=== PATIENT | male | born 1955 | race African-American/Black ===

== ENCOUNTER 2018-06-21 16:11 | Inpatient (IN) | payer MEDICAID ==
[~2018-06-21] VITALS: Ht 172.7 cm; Wt 106.7 kg
[2018-06-21 16:35] VITALS: Ht 172.7 cm; Wt 106.7 kg
--- NOTE | 2018-06-21 16:37 | NUR ---
PT BIB [facility] WITH C/O ALOC. PT WAS FOUND BY ROOMMATE IN SUPINE POSITION. PT RECALLS GOING TO [place] TO MAKE SOMETHING TO EAT, BUT NOTHING ELSE. BLOOD SUGAR WHEN MEDICS ARRIVED WAS 36. THEY ADMINISTERED D10 25G X2 AND BS WENT UP TO 56 AND PT BECAME AAOX4, WITH GCS OF 15. AT BEDSIDE PT IS AAOX4, RESPS E/U, SKIN IS PINK, WARM AND DRY. BILATERAL LOWER LEG EDEMA NOTED WITH SKIN TEAR TO R LOWER LEG. (NOT ACTIVE BLEED). PT PLACED ON FULL CM, BED IN LOWEST POSITION. CALL LIGHT WITHIN REACH.
--- NOTE | 2018-06-21 16:43 | NUR ---
ED PHYSICIAN AT BEDSIDE FOR PATIENT EVALUATION. MEDICAL SCREENING EXAMINATION COMPLETED BY ED PHYSICIAN DR. PEREZ
--- NOTE | 2018-06-21 17:29 | NUR ---
ROOMMATE AT BEDSIDE FRANCO AT BEDS SIDE. PT RESTING IN POSITION OF COMFORT. PT ON MOBILE PHONE TALKING TO SISTER. PT CALM AND COOPERATIVE. NO ACUTE DISTRESS NOTED AT THIS MOMENT.
--- NOTE | 2018-06-21 17:50 | NUR ---
PT GIVEN A TUNA SANDWHICH. PT ATE 100% AND STS "THAT WAS GOOD". PT CALM AND COOPERATIVE, RESPS E/U, AND DOESNT COMPLAIN OF PAIN.
--- NOTE | 2018-06-21 17:52 | NUR ---
PT REPORTS THAT HE HAS NOT BEEN ABLE TO TAKE ALL HIS MEDICAITON FOR ABOUT A MONTH; HOWEVER, HE DID TAKE GLIZIDE, ATORVASTATIN AND JANUVIA THE PAST 3 DAYS.
[2018-06-21 17:57] LABS: AMPHETAMINE QUAL UR NONE DETECTED (See below)
[2018-06-21 17:59] LABS: BILIRUBIN TOTAL 0.21 mg/dL (0.20-1.00); CALCIUM 7.7 mg/dL (8.5-10.1); CARBON DIOXIDE 22.2 mmol/L (21-32); POTASSIUM SERUM 3.8 mmol/L (3.5-5.1); TOTAL PROTEIN, SERUM 7.1 g/dL (6.4-8.2)
[2018-06-21 18:07] LABS: ALBUMIN 3.1 g/dL (3.4-5.0); CREATININE SERUM 6.8 mg/dL (0.7-1.3)
--- NOTE | 2018-06-21 18:17 | NUR ---
PT MEDICATED PER MD ORDERS. SEE EMAR FOR DETAILS.
[2018-06-21 18:23] LABS: PLATELET COUNT 294 x10^3mcL (130-400)
[2018-06-21 18:29] LABS: RED CELL DISTRIBUTION WIDTH 14.8 % (11.5-14.5)
[2018-06-21 18:31] LABS: MONOCYTE 2 % (0-7); SEGMENTED NEUTROPHILS 91 % (37-75); acanthocyte (spur cell) 1+; burr cell (echinocyte) 2+; rbc morphology (normal/abnorm) ABNORMAL (NORMAL)
[2018-06-21 18:32] LABS: PLATELET MORPHOLOGY PLATELETS NORMAL
--- NOTE | 2018-06-21 18:43 | NUR ---
PT C/O OF BEING COLD. PT GIVEN A BLANKET. PT FEELS BETTER.
--- NOTE | 2018-06-21 19:30 | NUR ---
RECEIVED REPORT FROM SOFI OVIEDO FOR CONTINUITY OF CARE, PATIENT SITTING UP IN BED, NO S/S OF ACUTE DISTRESS, HANDS ARE SHAKY D/T LOW BLOOD SUGAR
[2018-06-21 19:48] LABS: UA SPECIFIC GRAVITY 1.025 (1.005-1.035); microscopic required? YES; urine erythrocyte 2+ (NEGATIVE)
[2018-06-21 20:04] LABS: CHOLESTEROL/HDL RATIO 3.3; MAGNESIUM 2.2 mg/dL (1.8-2.4); PHOSPHOROUS 4.5 mg/dL (2.5-4.9)
[2018-06-21 20:15] LABS: T3 TOTAL 0.73 ng/mL
[2018-06-21 20:20] LABS: FREE T4 0.94 ng/dL (0.76-1.46); FREE THYROXINE INDEX 2.5 ug/dL (1.4-4.5); T4(THYROXINE) 7.3 ug/dL (4.7-13.3)
--- NOTE | 2018-06-21 21:03 | NUR ---
BS AT 48. MD PAGED. PATIENT ALERT AND ORIENTED X 4, NO S/S OF ACUTE DISTRESS NOTED
--- NOTE | 2018-06-21 21:22 | NUR ---
SPOKE WITH DR. ANDRADE, PER KEEP EVERYTHING THE SAME AND RECHECK BS AT 2130.
[2018-06-21] MEDS ORDERED: LIPITOR80 MG PO (21:54)
[2018-06-21] MEDS ORDERED: CARVEDILOL6.25 M1 PO (21:54)
[2018-06-21] MEDS ORDERED: JANUVIA100 M1 PO (21:55)
[2018-06-21] MEDS ORDERED: VISION VITAMIN1 EACH PO (21:55)
[2018-06-21] MEDS ORDERED: NIFEDIPINE60 MG PO (21:56)
[2018-06-21] MEDS ORDERED: GLUCOTROL10 MG PO (21:56)
[2018-06-21] MEDS ORDERED: HYDROCHLOROTHIA25 MG PO (21:57)
[2018-06-21] MEDS ORDERED: NOR10 PO (21:57)
[2018-06-21] MEDS ORDERED: LISINOPRIL10 MG PO (21:57)
--- NOTE | 2018-06-21 22:40 | NUR ---
BS 49. REPEATED BS 52. D50 GIVEN[address] DR HERNANDEZ NOTIFIED.WILL CONTINUE TO MONITOR.PT AAOX4
--- NOTE | 2018-06-21 22:42 | NUR ---
REPORT GIVEN TO SOFI VALERA FOR CONTINUITY OF CARE
--- NOTE | 2018-06-21 22:54 | NUR ---
RECEIVED PT FROM ED VIA FORREST ACCOMPANIED BY THE NURSE. LUNG SOUND CTA. NO ACUTE DISTRESS NOTED.C/O LIGHT MALLORY.IV SITE TO RAC PATENT AND INTACT. EDEMA +2 TO BLE. SKIN LESIONS TO BLE,PHOTO TAKEN.AAOX4.AMBULATORY.TELE#8 NSR. BED IN LOWEST POSITION,CALL LIGHT WITHIN REACH. WILL CONTINUE TO MONITOR.
--- NOTE | 2018-06-21 23:43 | NUR ---
BS 49. REPEAT BS 52. D50 GIVEN[address] DR HERNANDEZ NOTIFIED.WILL CONTINUE TO MONITOR.
--- NOTE | 2018-06-22 00:15 | NUR ---
BS 71. GIVEN SANDWICH AND APPLE JUICE. WILL CONTINUE TO MONITOR.
[2018-06-22 00:16] VITALS: BP 170/75
--- NOTE | 2018-06-22 02:00 | NUR ---
BS 47.REPEAT BS 44.GIVEN GLUCAGON IVP. WILL CONTINUE TO MONITOR.
--- NOTE | 2018-06-22 02:43 | NUR ---
RECHECKED BS 88. GIVEN JUICE AND CRACKERS.WILL CONTINUE TO MONITOR.
--- NOTE | 2018-06-22 05:27 | NUR ---
PT AAOX4. NO SOB NOTED. NO C/O PAIN. IVF INFUSING WELL. BS 79.BED IN LOWEST POSITION,CALL LIGHT MERRICK GRAHAM. WILL CONTINUE TO MONITOR.
--- NOTE | 2018-06-22 06:00 | NUR ---
PT MOVED TO RM 246 CLOSER TO NURSE STATION. INSTRUCTED PT TO CALL FOR HELP IF NEED OF GETTING OUT BED. BED IN LOWEST POSITION,SIDERAILS UP.BED ALARM ON. CALL LIGHT WITHIN REACH. WILL CONTINUE TO MONITOR.
[2018-06-22 06:08] VITALS: BP 149/79
[2018-06-22 07:13] LABS: CALCIUM 7.3 mg/dL (8.5-10.1); CARBON DIOXIDE 24.1 mmol/L (21-32)
--- NOTE | 2018-06-22 07:25 | NUR ---
RECEIVED REPORT FROM LEATHER WORKER NURSE AT THIS TIME. PATIENT RESTING COMFORTABLY IN BED. NO DISTRESS OR DISCOMFORT NOTED. BREATHING EVEN AND UNLABORED. NO RESPIRATORY DISTRESS NOTED. PATIENT DENIES CHEST PAIN AT THIS TIME. IV PATENT AND INTACT. ALL QUESTIONS AND CONCERNS ADDRESSED. ALL NEEDS ATTENDED TO. WILL CONTINUE TO MONITOR
--- NOTE | 2018-06-22 07:46 | NUR ---
DR RUSHING NOTIFIED OF PATIENTS CRITICAL LAB VALUES GLUCOSE 54 AND CHEMISTRY RESEARCH ASSISTANT 7.0. PATIENT IS EATING BREAKFAST AT THIS TIME. WILL RECHECK BLOOD SUGAR. ALL NEEDS ATTENDED TO. WILL CONTINUE TO MONITOR
--- NOTE | 2018-06-22 07:50 | NUR ---
CARE ENDORSED TO DAY NURSE SARA. ALL QUESTION AND CONCERN WERE ADDRESSED.
--- NOTE | 2018-06-22 08:06 | NUR ---
RECHECKED PATIENT BLOOD SUGAR AT THIS TIME. BLOOD SUGAR 95. DR RUSHING AT BEDSIDE. REVIEWING POC WITH PATIENT. ALL QUESTIONS AND CONCERNS ADDRESSED. ALL NEEDS ATTENDED TO. WILL CONTINUE TO MONITOR
[2018-06-22 08:47] LABS: BASOPHIL % 0.4 % (0-2); PLATELET COUNT 260 x10^3mcL (130-400)
[2018-06-22 08:54] VITALS: BP 139/73
[2018-06-22 09:17] LABS: RED CELL DISTRIBUTION WIDTH 14.9 % (11.5-14.5)
--- NOTE | 2018-06-22 09:39 | NUR ---
DR RUSHING NOTIFIED OF PATIENTS TROPONIN OF 0.139. PATIENT DENYING CHEST PAIN AT THIS TIME. ALL NEEDS ATTENDED TO.
--- NOTE | 2018-06-22 09:59 | NUR ---
ALL MEDICATIONS ADMINISTERED. PATIENT TOLERATED MEDICATIONS WELL. NO ADVERSE EFFECTS NOTED. ALL NEEDS ATTENDED TO. WILL CONTINUE TO MONITOR
--- NOTE | 2018-06-22 11:15 | NUR ---
PATIENTS BLOOD SUGAR 111. NO INSULIN COVERAGE NEEDED. WILL CONTINUE TO MONITOR
--- NOTE | 2018-06-22 12:26 | NUR ---
PATIENT SITTING UP IN BED EATING LUNCH AT THIS TIME. PATIENT TOLERATING DIET FAIRLY. NO APPARENT DISTRESS NOTED. ALL NEEDS ATTENDED TO. WILL CONTINUE TO MONITOR
[2018-06-22 13:13] VITALS: BP 150/80
--- NOTE | 2018-06-22 14:04 | NUR ---
DR RUSHING AWARE OF PATIENTS BLOOD PRESSURE OF 150/80. DR RUSHING TO ORDER PRN BLOOD PRESSURE MEDICATION. AWAITING ORDERS AT THIS TIME. ALL NEEDS ATTENDED TO. WILL CONTINUE TO MONITOR
--- NOTE | 2018-06-22 15:20 | NUR ---
DR RUSHING AWARE OF TROPONIN OF 0.130 AT THIS TIME. ALL NEEDS ATTENDED TO. WILL PROCEED ORDERED
--- NOTE | 2018-06-22 18:42 | NUR ---
PATIENT RESTING COMFORTABLY IN BED AT THIS TIME. NO APPARENT DISTRESS OR DISCOMFORT NOTED. IV PATENT AND INTACT. ALL QUESTIONS AND CONCERNS ADDRESSED. SAFETY PRECAUTIONS MAINTAINED. ALL NEEDS ATTENDED TO. WILL ENDORSE ALL CARE TO SPEECH PROFESSOR NURSE
--- NOTE | 2018-06-22 19:37 | NUR ---
PT. AWAKE, SITTING UP IN BED. ORIENTED X4. DENIES HEADACHE OR DIZZINESS. SPEECH CLEAR. ABLE TO FOLLOW COMMANDS. BREATH SOUNDS CLEAR THROUGHOUT LUNG CHOWDARY, RESP. EVEN, UNLABORED. NO SOB. PT. ON RA. ABD. SOFT AND ROUND, OBESE. BOWEL SOUNDS ACTIVE. DENIES ABD. PAIN, DENIES NAUSEA. PEDAL PULSES MODERATE BLE. +1-2. ABRASIVE WOUND, SLIGHTLY OOZING TO RLE, COVERED. DRIANAGE MINIMAL. PT. DENIES ANY PAIN OR DISCOMFORT. IV HEPLOCKED. FLUSHING WELL. BED LOW LAYING WITH ALARM ON. PT. INSTRUCTED TO CALL FOR HELP BEFORE GETTING OOB. CALL LIGHT WITHIN REACH.
--- NOTE | 2018-06-22 20:15 | NUR ---
DR. ARAUZ MADE ROUNDS, MADE ASSESSMENT AND SPOKE WITH PATIENT. MADE SUGGESTION FOR WOUND CARE, WOUND CARE IS ALREADY ORDERED SINCE ADMISSION. DR. PAYNE MADE AWARE OF CAKE WRINGER MAKING ROUNDS.
[2018-06-22 20:52] VITALS: BP 161/81
--- NOTE | 2018-06-22 21:40 | NUR ---
DR. ABDULLAHI, BEVERAGE INSPECTION MACHINE TENDER, MADE ROUNDS, SPOKE WITH PATIENT. PT. VERBALIZED UNDERSTANDING. NO NEW ORDERS OBTAINED AT THIS TIME.
--- NOTE | 2018-06-22 22:15 | NUR ---
DR. LAO MADE ROUNDS AND SPOKE WITH PATIENT. INFORM PATIENT OF POSSIBILITY OF NEEDING DIALYSIS BEFORE DISCHARGE BASED ON HIS LABS AND HTN. RECEIVED NEW ORDERS FOR NORVASC, LASIX CHANGED TO BID. LABS ALSO ORDERED FOR AM. WILL CONTINUE TO MONITOR.
--- NOTE | 2018-06-23 02:13 | NUR ---
PT. SLEEPING, EYES CLOSED. CALL LIGHT REMAINS WITHIN REACH. WILL CONTINUE TO MONITOR.
--- NOTE | 2018-06-23 05:57 | NUR ---
PT. AWAKE, UPSET ABOUT BLOOD BEING DRAWN TOO MUCH. PT. MADE AWARE OF REASONS FOR MORNING BLOOD DRAW. VERBALIZED UNDERSTANDING. PT.VERBALIZING SINCE LAST NIGHT HIS OBJECTION FOR DIALYSIS IF HE HAS TO DO SO. STATED THAT HE DOES NOT WANT ANY DIALYSIS. PT. MADE AWARE OF PROS OF DIALYSIS FOR HIS SITUATION. PT. SAID THAT HE WOULD CONSIDER IF HE NEEDS DIALYSIS.
[2018-06-23 06:41] VITALS: BP 187/95
--- NOTE | 2018-06-23 06:48 | NUR ---
PT.'S BP 187/95. THIS IS SECOND REPEATED BLOOD PRESSURE, INITIAL SBP 186. PRN HYDROCHLOROTHIAZIDE 10MG IVP GIEN ORDERED. WILL RECHECK BP.
--- NOTE | 2018-06-23 07:15 | NUR ---
BP CHECKED AFTER HCTZ IVP MEDICATION. BP DOWN TO 168/93, MAP 118. DR. MENDEZ, ASSEMBLER MOLDED FRAMES AT BEDSIDE, AWARE. DR. SPOKE TO PATIENT ABOUT NEEDING HEMODIALYSIS. PER DR. MENDEZ, PT. STATED THAT HE WILL NOT DO ANY HD TODAY. PT. CARE ENDORSED OVER TO INCOMING NURSE.
--- NOTE | 2018-06-23 07:20 | NUR ---
RECEIVED PT FROM GRANT RN. PT AA/OX4. NO S/S OF ACUTE DISTRESS. DENIES PAIN. REPORTS INTERMITTENT SOB, DENIES AT THIS TIME. O2 SAT 95% ON ROOM AIR. RR EVEN/SHALLOW/UNLABORED. CHEST EXPANSION SYMMETRICAL. NO MALLORY. NO DIZZINESS. NO N/V. NO ABD. PAIN. BLE ELEVATED WITH PILLOW. IV WNL, SALINE LOCKED. FLUID RESTRICTIONS IN PLACE. BED IN LOW POSITION. CALL LIGHT WITHIN REACH. WILL CONT. TO MONITOR.
[2018-06-23 07:28] LABS: BASOPHIL % 0.5 % (0-2); PLATELET COUNT 265 x10^3mcL (130-400)
[2018-06-23 07:33] LABS: RED CELL DISTRIBUTION WIDTH 14.6 % (11.5-14.5)
[2018-06-23 07:35] LABS: CALCIUM 7.3 mg/dL (8.5-10.1); CARBON DIOXIDE 21.9 mmol/L (21-32); PHOSPHOROUS 4.4 mg/dL (2.5-4.9); POTASSIUM SERUM 4.2 mmol/L (3.5-5.1)
[2018-06-23 07:40] LABS: CREATININE SERUM 7.1 mg/dL (0.7-1.3)
[2018-06-23 09:11] VITALS: BP 143/67
--- NOTE | 2018-06-23 11:45 | NUR ---
PT LAYING IN BED RESTING, EASILY AROUABLE TO VERBAL STIMULI. NO S/S OF ACUTE DISTRESS. BP 126/73, NO COMPLAINT OF PAIN. NO SOB ON ROOM AIR. NO CHEST PAIN. IV WNL, SALINE LOCKED. BED IN LOW POSITION. BLE ELEVATED WITH PILLOW. WILL CONT. TO MONITOR.
--- NOTE | 2018-06-23 15:06 | NUR ---
Initial Nutrition Assessment Dx: Hypoglycemia, Accelerated HTN, PMHx: HTN, DM Type II, Hypercholesterolemia PSHx: None Labs: (06/23) Na 138, K 4.2, BG 99, BUN 45H, Cr 7.1H, Trop + x 3, CK 2709H, WBC 7.9, H/H 7.6L/22L BG accuchecks 06/22-06/23: 79-145 mg/dL, with all readings <180 mg/dL indicating adequate glycemic control. Meds: Colace, Coreg, D50%, Humulin, Hydralazine, Lasix, Lipitor, Norvasc, MVI, Zofran Diet: CCHO PO Intake: (06/23) B: 100% (06/22) L/D: 100% Ht: 68" (173 cm) Wt: 271# (123.4 kg) BMI: 41.3 (Morbidly obese) IBW: 154# %IBW: 176% AJBW: 183# (83.1 kg) UBW: 260# Age: 62 y/o male Food Allergies: NKFA Skin: Abrasion/redness to BLE Alfa: 19 Edema: +1 to +2 non-pitting edema to BLE GI: Last BM x 1 (06/21) Per H&P, pt. admitted with LOC x 1 episode associated with SOB x 3 weeks, dizziness, fatigue, and x 1 episode of passing out at home. Pt. ran out of BP medications, but did not receive them in the mail as ordered. On multiple HTN medications for management. Pt. admits to not measuring BP regularly at home. Per bed huddle, pt. is requiring HD based on renal function labs, but has been refusing, despite discussions of the benefits of HD for his current condition. Pt. seen laying in bed during visit. Endorses excellent appetite without GI distress associated with diet order. Observed wound pictures in chart, no pressure injuries noted. WC: Oozing RLE wound s/p fall Problem with: No c/o N/V/D/C Problems with: Chewing: N Swallowing: N Current appetite: Excallent Recent wt change: None %wt change: N/A Vitamin/Supplement use: MVI QD Special diet at home: Regular Physical activity: None Education: Notified pt. of CCHO diet and associated restrictions; provided education on CCHO counting for optimal BG management. Offered pt. reduced calorie diet for weight management, which pt. had declined at this time. Provided NCM handout for CCHO diet. Estimated Nutritional Needs Based on adjusted body weight 83.1 kg: Energy: 9186-3681 kcal/d (20-22 kcal/kg-weight maintenance) Protein: 66-83 g/d (0.8-1.0 g/kg)-wt. maintenance and preservation of lean body mass Fluid: 7351-4786 ml/d (1 ml/kcal-fluid balance) or per doctor Nutrition Diagnosis 1. Morbid obesity r/t sedentary lifestyle and poor food choices AEB pt. reports of not participating in physical activities on a regular basis and consumption of high calorie, highly processed snack items on a regular basis. Intervention/RD recommendations 1. Continue CCHO diet as ordered, and as tolerated. 2. Offered 1800 DM diet; pt. declined at this time. Monitor/Evaluate Goal: PO intake at least 75% of estimated needs Monitor: PO intake, Labs, GI function, diet tolerance F/U in 7 days as low risk (06/30)
--- NOTE | 2018-06-23 15:07 | NUR ---
Intervention/RD recommendations 1. Continue CCHO diet as ordered, and as tolerated. 2. Offered 1800 DM diet; pt. declined at this time.
--- NOTE | 2018-06-23 15:49 | NUR ---
ASSISTED PT TO RESTROOM, GAIT UNSTEADY, PT GRABBING ON TO FURNITURE. REPORTS GENERALIZED WEAKNESS/FATIGUE. HAD ONE BM, FORMED/BROWN. RETURNED TO CHAIR AT SIDE OF BED. DENIES SOB, NO CHEST PAIN. CALM/COOPERATIVE. NO N/V, NO ABD. PAIN. IV WNL, SALINE LOCKED. CALL LIGHT WITHIN REACH. FALL PREC IN PLACE. WILL CONT. TO MONITOR.
[2018-06-23 16:16] VITALS: BP 140/73
--- NOTE | 2018-06-23 18:44 | NUR ---
PT LAYING IN BED. RESTING WITH BOTH EYES CLOSED. EASILY AROUSABLE TO VERBAL STIMULI. AA/OX4. DENIES PAIN AT THIS TIME. NO SOB ON ROOM AIR. NO CHEST PAIN. DRESSING TO RLE REINFORCED, WD CARE CONSULT PENDING. DRESSING CDI. BED IN LOW POSITION. FALL PRECAUTIONS IN PLACE. PT IN ROOM CLOSE TO NURSES STATION. VIKI LIGHT WITHIN REACH. WILL ENDORSE TO ONCOMING SHIFT.
--- NOTE | 2018-06-23 19:33 | NUR ---
EYES CLOSED, EASILY AWAKENED. ORIENTED TO NAME, PLACE, TIME AND SITUATION. SPEECH CLEAR AND APPROPRIATE. BREATHING EVEN AND UNLABORED. DENIES HAVING SHORTNESS OF BREATH. DENIES HAVING PAIN AT THIS TIME. SALINE LOCK TO LEFT WRIST. FREE FROM REDNESS. FLUID RESTRICTION 1300 ML/DAY.
--- NOTE | 2018-06-23 20:30 | NUR ---
SALINE LCOK TO LEFT WRIST FLUSHED WELL. FREE FROM REDNESS.
--- NOTE | 2018-06-23 21:40 | NUR ---
INFORMED DR. DIXON OF ELEVATED BP AND HYDRALAZINE 10MG IVP ADMINISTERED.
[2018-06-23 21:59] VITALS: BP 158/84
--- NOTE | 2018-06-23 22:00 | NUR ---
bp checked 158/94. pt resting comfortably at this time. informed him his roommate called earlier.
[2018-06-23 22:23] VITALS: BP 158/84
--- NOTE | 2018-06-24 00:04 | NUR ---
eyes closed, breathing even and unlabored. hob elevated 30 deg. call light within easy reach.
[2018-06-24 05:42] VITALS: BP 188/98
[2018-06-24 06:20] LABS: BASOPHIL % 0.3 % (0-2); PLATELET COUNT 272 x10^3mcL (130-400)
--- NOTE | 2018-06-24 06:29 | NUR ---
AWAKE AND ALERT, WATCHING TV. BREATHING EVEN AND UNLABORED ON ROOM AIR. CALL LIGHT WITHIN EASY REACH.
[2018-06-24 06:31] LABS: RED CELL DISTRIBUTION WIDTH 14.8 % (11.5-14.5)
[2018-06-24 06:37] VITALS: BP 158/88
[2018-06-24 06:43] LABS: CALCIUM 7.6 mg/dL (8.5-10.1); CARBON DIOXIDE 20.8 mmol/L (21-32); PHOSPHOROUS 5.1 mg/dL (2.5-4.9); POTASSIUM SERUM 4.1 mmol/L (3.5-5.1)
[2018-06-24 06:45] LABS: CREATININE SERUM 7.9 mg/dL (0.7-1.3)
--- NOTE | 2018-06-24 07:05 | NUR ---
PT AA/OX4, SITTING AT SIDE OF BED, NO S/S OF ACUTE DISTRESS. NO COMPLAINT OF PAIN. NO SOB ON ROOM AIR. NO MALLORY. NO N/V. NO DIZZINESS. INSTRUCTED PT TO KEEP BLE ELEVATED WITH PILLOWS. PT VERBALIZED UNDERSTANDING. BED IN LOW POSITION. CALL LIGHT WITHIN REACH. FALL PREC. IN PLACE. PT IN ROOM CLOSE TO NURSES STATION. WILL CONT. TO MONITOR.
--- NOTE | 2018-06-24 07:08 | NUR ---
sitting on bed. in no acute distress. endorsed to nurse nuno
[2018-06-24 08:35] VITALS: BP 147/74
--- NOTE | 2018-06-24 12:23 | NUR ---
WOUND CARE EVALUATION NOTE: REASON FOR EVALUATION:BLE MULTIPLE WOUNDS SKIN ASSESSMENT DONE AT 9:00 AM WITH THIS 62 Y/O MALE PT [place] [facility] [place] . PAST MEDICAL HX INCLUDES DM, HTN AND CHRONIC WOUNDS BLE. ALL ABOVE INFORMATION WAS OBTAINED FROM ADMISSION H&P AND PT.PT IS AAX3, PLAN OF CARE INCLUDING WOUND CARE TEACHING DISCUSSED WITH PRIMARY RN AND PT. PT. VERBALIZING UNDERSTANDING. INTEGUMENTARY: -LEFT LLE CELLULITIS,MULTIPLE PARTIAL THICKNESS LOSS OF SKIN WITH LARGEST MEASURED 3X2X0.2 CM AND ALL WOUND BED 100% GRANULATING TISSUE, MOIST WITH NO ODOR, MADHAVI WOUND SKIN INTACT WITH ERYTHEMA, WARM AND SWELLING NOTICE, NO PAIN -RLE ABOVE ANKLE MULTIPLE DRY BROWN SCABS WITH LARGEST 2X2 TO ANTERIOR LEG MADHAVI-WOUND SKIN INTACT, PAIN NO PAIN -BILATERAL HEELS DRY THICK CALLUSES. RECOMMENDATIONS: -PT. IS ALLERGY TO IODINE -CLEANSE RIGHT LE WOUNDS WITH NS. PAT DRY, APPLY XEROFORM DRESSING WRAP WITH KERLIX ROLLS AND CHANGE DRESSING Q T,TH AND SAT, AND PRN -CONTINUE TO MONITOR RIGHT LE SCABS ,KEEP DRY AND CLEAN -TURN AND REPOSITION Q2H, OFFLOAD SACRALCOCCYX BY TURNING RIGHT AND LEFT -CONTINUE TO FOLLOW RD RECOMMENDATIONS -PRIMARY RN CONTINUE TO REINFORCE WOUND CARE TEACHING ALL ABOVE RECOMMENDATIONS DISCUSSED WITH PRIMARY RN WILL FOLLOW UP PT Q7-10 DAYS. PLEASE CONTACT WOUND CARE NURSE FOR ANY QUESTION AND CHANGE OF WOUND CONDITION.
--- NOTE | 2018-06-24 12:50 | NUR ---
PT AA/OX4. ASSISTED TO SIT IN CHAIR AT SIDE OF BED, PT EATING LUNCH. TEMP 99.0F. NO CHILLS. NO N/V. NO ABD. PAIN. NO SOB ON ROOM AIR. OUTPUT FROM URINAL 875 CLEAR/PALE YELLOW. DRESSING TO RLE, CDI. NO MALLORY. NO DIZZINESS. COMPLAINT OF MILD PAIN TO BLE, RATES 3/10, TOLERABLE AT THIS TIME. BED IN LOW POSITION. CALL LIGHT WITHIN REACH. WILL CONT. TO MONITOR.
[2018-06-24 13:13] VITALS: BP 140/74
[2018-06-24 16:11] VITALS: BP 150/88
--- NOTE | 2018-06-24 16:42 | NUR ---
RIGHT LEG WOUND +PSEUDOMONAS AERUGINOSA, DR. PAYNE AWARE, NEW ORDERS ENTERED, SEE AUG.
--- NOTE | 2018-06-24 18:27 | NUR ---
PT LAYING IN BED. AA/OX4. NO S/S OF ACUTE DISTRESS. DENIES PAIN AT THIS TIME. NO SOB ON ROOM AIR, DRESSING TO RLE CDI. NO CHEST PAIN. IV WNL TO LFA, NO REDNESS, NO SWELLING, NO INFILTRATION. PATENT, IV ANTIBIOTICS RUNNING. BED IN LOW POSITION. BLE ELEVATED WITH PILLOW. CALL LIGHT WITHIN REACH. FALL PREC. IN PLACE. WILL ENDORSE TO ONCOMING SHIFT.
--- NOTE | 2018-06-24 19:27 | NUR ---
RECEIVED PT FROM PREVIOUS SHIFT. PT A/OX4. DENIES PAIN. DENIES SOB ON RA. IV PATENT AND INFUSING LEVAQUIN WITH NO S/S OF INFILTRATION. CALL LIGHT WITHIN REACH, BED IN LOW POSITION. WILL CONTINUE TO MONITOR.
[2018-06-24 20:25] VITALS: BP 162/80
[2018-06-25] VITALS (7 sets, daily range): BP systolic 126–215; BP diastolic 59–103
--- NOTE | 2018-06-25 02:24 | NUR ---
PT RESTING IN NO ACUTE DISTRESS. RR EVEN AND UNLABORED. CALL LIGHT WITHIN REACH, BED IN LOW POSITION. WILL CONTINUE TO MONITOR.
--- NOTE | 2018-06-25 05:53 | NUR ---
BP ELEVATED 215/103. HYDRALAZINE GIVEN SLOW IVP PER EMAR. BP RECHECKED AFTER 1 HOUR, 179/81. NORVASC GIVEN PO. WILL CONTINUE TO MONITOR.
--- NOTE | 2018-06-25 05:57 | NUR ---
DR TONG MADE AWARE OF BP.
[2018-06-25 06:06] LABS: BASOPHIL % 0.3 % (0-2); PLATELET COUNT 329 x10^3mcL (130-400); RED CELL DISTRIBUTION WIDTH 14.3 % (11.5-14.5)
[2018-06-25 06:34] LABS: CALCIUM 8.3 mg/dL (8.5-10.1); CARBON DIOXIDE 24.6 mmol/L (21-32); PHOSPHOROUS 5.3 mg/dL (2.5-4.9); POTASSIUM SERUM 4.1 mmol/L (3.5-5.1)
[2018-06-25 06:50] LABS: CREATININE SERUM 8.3 mg/dL (0.7-1.3)
--- NOTE | 2018-06-25 07:30 | NUR ---
RC'D PT RESTING IN BED WITH NO APPARENT SIGNS OF DISTRESS. A/A/O/X4, SPEECH CLEAR AND APPROPRIATE. DENIES MALLORY/DIZZINESS. ON TELE, DENIES CHEST PAIN/PRESSURE. PALP PULSES, EDEMA NOTED TO BLE. RESPIRAITONS EQUAL AND UNLABORED. LUNGS CTA. ON RA, DENIES SOB. ABDOMEN SOFT AND NONTENDER. ACTIVE BS. DENIES N/V AT THIS TIME. VOIDS FREQ SMALL AMOUNTS.. GENERALIZED WEAKNESS. REDNESS/BLISTERS NOTED TO BLE. PT REPORTS GENERALIZED DISCOMFORT. IV PATENT AND INTACT. BED IN LOW POSITION. CALL LIGHT IN REACH. WILL CONTINUE TO MONITOR
--- NOTE | 2018-06-25 08:18 | NUR ---
BS SPOT CHECKED, 152
--- NOTE | 2018-06-25 08:34 | NUR ---
AM MEDICATIONS GIVEN. PT TOLERATED WELL. RESPRIRATIONS EQUAL AND UNLABORED. ON RA, DENIES SOB. PT REPORTS GENERALIZED PAIN, BUT REPORTS "PAIN MEDICATION WONT HELP THIS BED IS UNCOMFORTABLE". BED IN LOW POSITION. CALL LIGHT IN REACH. WILL CONTINUE TO MONITOR
--- NOTE | 2018-06-25 09:07 | NUR ---
PT C/O OF NAUSEA, MEDICATED PER EMAR
--- NOTE | 2018-06-25 11:53 | NUR ---
PT RESTING IN BED WITH NO APPARENT SIGNS OF DISTRESS. PT SLEEPING WITH VISIBLE RESPIRATIONS NOTED. RESPIRATIONS EQUAL AND UNLABORED. ON RA, DENIES SOB. BED IN LOW POSITION. WILL CONTINUE TO MONITOR
--- NOTE | 2018-06-25 12:32 | NUR ---
BP 175/[address] KEITH NOTIFIED AND MADE AWARE. PER DR KU DO NOT GIVE HYDRALZINE AT THIS TIME D/T IT WOULD INCREASE THE HEART RATE. TO ADJUST AND ADD NEW ORDERS. AWAITING NEW ORDERS AT THIS TIME.
--- NOTE | 2018-06-25 18:40 | NUR ---
PT RESTING IN BED WITH NO APPARENT SIGNS OF DISTRESS. RESPIRATIONS EQUAL AND UNLABORED. ON RA, DENIES SOB. ON TELE, DENIES CP. GENERALIZED WEAKNESS. NO ACUTE SKIN CHANGES NOTED. DENIES PAIN AT THIS TIME. IV PATENT AND INTACT. BED IN LOW POSITION. CALL LIGHT IN REACH. WILL ENDORSE TO PROGRAMMER ANALYST HEALTH IT RN
--- NOTE | 2018-06-25 19:44 | NUR ---
SHIFT REASSESSMENT DOONE.PATIENT ALERT AND ORIENTED.REMINDED TO STAY IN BED,CALL FOR ASSISTANCE,FELL RECENTLY,CALL LIGHT IN REACH.BREATHING EASY.HEPLOCK L WRIST.FOR INSERTION OF TUNNEL CATH IN AM,HD CANDIDATE.TELE 8 SR.PITTING EDEMA LOWER EXT NOTED.CALL LIGHT IN REACH.
--- NOTE | 2018-06-25 20:00 | NUR ---
PATIENT HAS R LOWER EXT WOUNDS,CLEANSE WITH NS ORDERED 06/24,PAT DRY AND APPLY XEROFOAM DRESSING WRAP WITH KERLIX ROLL,CHANGE DRESSING T TH AND SAT AND PRN.
--- NOTE | 2018-06-25 21:54 | NUR ---
PORTABLE CXR NEW ORDER TONIGHT WAS JUST DONE WITHOUT ANY INCIDENT.
--- NOTE | 2018-06-25 21:55 | NUR ---
REMINDED PATIENT TO NOT AMBULATE WITHOUT CALLING,FELL RECENTLY/FALL PRECAUTION.
--- NOTE | 2018-06-25 22:03 | NUR ---
ALL PM MEDS GIVEN WITHOUT ANY INCIDENT.SWALLOWS WELL.USING URINAL AT BEDSIDE.ASLOFLUID RESTRICTION 1300 ML /DAY.
--- NOTE | 2018-06-26 01:36 | NUR ---
PATIENT TO OR IN AM 0730 US GUIDED LISA SPLIT HEMODIALYSIS CATH INSERTION,CHECKLIST INITIATED,NPO SINCE MIDNIGHT.DIRECTOR INDEPENDENT MADE AWARE TO DO MARYSOL BATH JADON.CONSENT ALREADY SIGNED PREVIOUSLY.ANESTHESIA PAPER IN FRONT OF CHART,NOT SIGNED YET.PATIENT AWARE OF THE PROCEDURE.
--- NOTE | 2018-06-26 01:41 | NUR ---
RT MADE AWARE NEED EKG RESULT IN CHART,FOR OR IN AM.NO COPY FOUND.
--- NOTE | 2018-06-26 01:44 | NUR ---
COPY FOUND IN CHART/EKG.
--- NOTE | 2018-06-26 05:57 | NUR ---
I AND O MEASURED,PATIENT SITTING UP AT BEDSIDE,USE URINAL SEVERAL TIMES DURING THE NIGHT.MARYSOL BATH TO BE DONE SOON,HEPLOCK INTACT.WILL ENDORSE TO NEXT SHIFT.
[2018-06-26 06:11] LABS: PLATELET COUNT 301 x10^3mcL (130-400); RED CELL DISTRIBUTION WIDTH 14.2 % (11.5-14.5)
[2018-06-26 06:17] VITALS: BP 155/68
[2018-06-26 06:28] LABS: BASOPHIL % 0 % (0-2)
[2018-06-26 06:32] LABS: CALCIUM 8.4 mg/dL (8.5-10.1); CARBON DIOXIDE 23.8 mmol/L (21-32); MAGNESIUM 2.1 mg/dL (1.8-2.4); PHOSPHOROUS 5.3 mg/dL (2.5-4.9); POTASSIUM SERUM 4.1 mmol/L (3.5-5.1)
--- NOTE | 2018-06-26 06:51 | NUR ---
REPORT GIVEN TO Jadyn MURRAY
[2018-06-26 06:52] LABS: CREATININE SERUM 8.8 mg/dL (0.7-1.3)
--- NOTE | 2018-06-26 06:53 | NUR ---
MARYSOL BATH ALREADY DONE 30 MINUTES AGO PER THIAGO.
--- NOTE | 2018-06-26 07:20 | NUR ---
RC'D PT RESTING IN BED WITH NO APPARENT SIGNS OF DISTRESS. A/A/O/X4, SPEECH CLEAR AND APPROPRIATE. DENIES MALLORY/DIZZINESS. ON TELE, DENIES CHEST PAIN/PRESSURE. RESPIRATIONS EQUAL AND UNLABORED. LUNGS CTA. ON RA, DENIES SOB. PALP PULSES, EDEMA NOTED TO BLE. ABDOMEN SOFT AND NONTENDER AT THIS TIME. ACTIVE BS. DENIES N/V. VOIDS SMALL FREQUENT AMOUNTS. GENERALIZED WEAKNESS. AMB WITH ASSIST. PT DENIES PAIN AT THIS TIME. IV PATENT AND INTACT, SL. BED IN LOW POSITION. CALL LIGHT IN REACH. WILL CONTINUE TO MONITOR
--- NOTE | 2018-06-26 08:51 | NUR ---
RC'D REPORT FROM OR. PT STABLE AT THIS TIME, POST ULTRASOUND GUIDED LISA SPLIT HEMODIALYSIS CATHETER. BIOPATCH AND TEGADERM, 4X4 AND TAPE IN PLACE. VITALS STABLE. PT TO ARRIVE ON FLOOR SHORTLY
--- NOTE | 2018-06-26 09:08 | NUR ---
PT ARRIVED ON FLOOR, VITALS STABLE. REPISRATIONS EQUAL AND UNLABROED. ON RA, DENIES SOB. PT DENIES PAIN/N/V/DIZZINESS. BED IN LOW POSITION. CALL LIGHT IN REACH. TELE MONITOR NOTIFIED AND MADE AWARE. WILL CONTINUE TO MONITOR
[2018-06-26 09:15] VITALS: BP 162/87
--- NOTE | 2018-06-26 10:32 | NUR ---
PT RESTING IN BED SLEEPING WITH VISIBLE RESPIATIONS, EQUAL AND UNLABORED. BED IN LOW POSITION. CALL LIGHT IN REACH. WILL COTNINUE TO MONITOR
[2018-06-26 13:00] VITALS: BP 152/85
[2018-06-26 17:51] VITALS: BP 142/72
--- NOTE | 2018-06-26 17:54 | NUR ---
PT CURRENTLY RC'ING HD AT THIS TIME. HD NURSE AT BEDSIDE. WILL CONTINUE TO MONITOR
--- NOTE | 2018-06-26 18:20 | NUR ---
PT RESTIGN IN BED RC'ING HD, HD NURSE PRESENT AT BEDSIDE. PT ON TELE, DENIES CHEST PAIN/PRESSURE. RESPIRATIONS EQUAL AND UNLABORED. ON RA, DENIES SOB. GENERALIZED WEAKENSS. NO ACUTE SKIN CHANGES NOTED AT THIS TIME. PT DENIES EXCESSIVE PAIN AT THIS TIME. IV PATENT AND INTACT. BED IN LO WPOSITION. CALL LIGHT IN REACH. WILL ENDORSE TO IAP DISPLAYS ANALYST RN
--- NOTE | 2018-06-26 19:40 | NUR ---
REC'D PT FROM DAY NURSE. HD IN PROGRESS. PT RESTING IN BED. AAOX4, SPEECH CLEAR, FOLLOWS COMMANDS. REPORTS [place] BILAT, NO HEARING AIDS. TELE 8. DENIES CP, DIZZINESS, OR PALPITATIONS. DENIES RESP DISTRESS OR SOB. BREATHING EVEN/UNLABORED ON RA. PITTING EDEMA BLE. ABD SOFT/ROUND. DENIES ABD PAIN, TENDERNESS, OR N/V. VOIDING SMALL AMOUNTS USING URINAL. WEAKNESS TO BLE. BLE REDNESS. DRESSING TO RLE IN PLACE [facility]. 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 DENIES PAIN AT THIS TIME. IV TO LW FLUSHED AND PATENT, SITE WNL. CALL LIGHT WITHIN REACH, BED AT LOWEST POSITION. WILL CONTINUE TO MONITOR.
--- NOTE | 2018-06-26 20:16 | NUR ---
HD COMPLETED. NO OUTPUT, VSS. HEPARIN ADMINISTERED BY HD NURSE.
[2018-06-26 20:42] VITALS: BP 147/60
--- NOTE | 2018-06-27 01:15 | NUR ---
PT AWAKE AND RESTING IN BED. LAYING ON R SIDE. NO COMPLAINTS AT THIS TIME. BREATHING EVEN/UNLABORED ON RA. CALL LIGHT WITHIN REACH, BED AT LOWEST POSITION. WILL CONTINUE TO MONITOR.
--- NOTE | 2018-06-27 03:25 | NUR ---
PT RESTING IN BED WITH EYES CLOSED. LAYING ON L SIDE. NO SIGNS OF DISTRESS NOTED. BREATHING EVEN/UNLABORED ON RA. CALL LIGHT WITHIN REACH, BED AT LOWEST POSITION. WILL CONTINUE TO MONITOR.
[2018-06-27 05:05] VITALS: BP 154/79
--- NOTE | 2018-06-27 05:32 | NUR ---
PT RESTING IN BED WITH EYES CLOSED. AWAKENS WITH VERBAL STIMULI. NO COMPLAINTS AT THIS TIME. DENIES ANY PAIN OR SOB. BREATHING EVEN/UNLABORED ON RA. BS 130, NO COVERAGE. HD THIS AM. CALL LIGHT WITHIN REACH, BED AT LOWEST POSITION. WILL ENDORSE TO DAY NURSE.
[2018-06-27 06:34] LABS: CALCIUM 7.9 mg/dL (8.5-10.1); CARBON DIOXIDE 25.4 mmol/L (21-32); PHOSPHOROUS 4.5 mg/dL (2.5-4.9)
[2018-06-27 06:45] LABS: BASOPHIL % 0.1 % (0-2); PLATELET COUNT 291 x10^3mcL (130-400); RED CELL DISTRIBUTION WIDTH 14.1 % (11.5-14.5)
[2018-06-27 06:47] LABS: CREATININE SERUM 7.5 mg/dL (0.7-1.3)
--- NOTE | 2018-06-27 07:00 | NUR ---
PATIENT AND REPORT RECEIVED FROM ZACK SPARKS RN.
[2018-06-27 08:23] VITALS: BP 124/64
[2018-06-27 11:44] VITALS: BP 147/71
--- NOTE | 2018-06-27 13:00 | NUR ---
MADE AWARE BY HD NURSE CONCERN OVER H+H BEING LOW AT 7.1/21 AND PT APPEARING PALE. INQUIRED ABOUT POSSIBLE NEED FOR TRANSFUSION. DR. RUSHING CALLED. SPOKE WITH MD STATED SHE WILL REVIEW LABS AND CHECK WITH ATTENDING. ATTENDING NURSE MADE AWARE PENDING FURTHER ORDERS.
[2018-06-27 16:26] VITALS: BP 140/74
--- NOTE | 2018-06-27 18:53 | NUR ---
PATIENT HAS REMAINED STABLE THROUGHOUT SHIFT. HEMODIALYSIS DONE TODAY, 1 LITER OUT. BLOOD TRANSFUSION STARTED ON PATIENT, PATIENT WAS PER MEDICATED. ACCUCHECKS STABLE. WILL ENDORSE TO NEXT SHIFT.
--- NOTE | 2018-06-27 19:32 | NUR ---
RECEIVED PT FROM DAY SHIFT RN. DROWSY BUT AROUSABLE. TELE #8 SHOWING NSR. BLOOD TRANSFUSION IN PLACE RUNNING AT 100CC/HR, PT DENIES ADVERSE FX AT THIS TIME. REMINDED PT TO NOTIFY RN MECHE IF EXPERIENCING ADVERSE S/S. PT VERBALIZED UNDERSTANDING. DENIES CP. BREATHING E/U, NO SOB, LUNG SOUNDS CTAB, PT ON 2L NC. ABD SOFT/ROUND, BOWEL SOUNDS ACTIVE X4 QUADS, DENIES N/V. PULSES PALPABLE, +1 PITTING EDEMA BLE. PT RECEIVED HD TODAY, 06/27/18 WITH 1L OUTPUT. RIJ DRESSING CDI. CALL LIGHT WITHIN REACH. WILL CONTINUE TO MONITOR.
[2018-06-27 21:14] VITALS: BP 124/68
[2018-06-27 21:41] VITALS: BP 145/72
--- NOTE | 2018-06-27 21:41 | NUR ---
BLOOD TRANSFUSION COMPLETED AT 2141. VITALS ARE FOLLOWS: 99.5F TEMP, 98 HR, 18 RR, 99% OXYGEN SATURATION ON 2L NC, BP 145/72. NO ADVERSE FX NOTED. WILL CONTINUE TO MONITOR.
--- NOTE | 2018-06-28 00:40 | NUR ---
PT RESTING IN BED WITH EYES CLOSED. NO S/S ACUTE DISTRESS. BREATHING E/U. NO SIGNS OF PAIN NOTED. WILL CONTINUE TO MONITOR.
[2018-06-28 05:46] VITALS: BP 148/77
--- NOTE | 2018-06-28 06:16 | NUR ---
PT HAD RESTFUL NIGHT. DENIES PAIN. NO S/S ACUTE DISTRESS. ALL NEEDS MET AND ATTENDED TO. NO CHANGES OVERNIGHT. CALL LIGHT WITHIN REACH. WILL CONTINUE TO MONITOR.
[2018-06-28 06:23] LABS: CALCIUM 8.2 mg/dL (8.5-10.1); CARBON DIOXIDE 29.7 mmol/L (21-32); MAGNESIUM 1.9 mg/dL (1.8-2.4); PHOSPHOROUS 4.4 mg/dL (2.5-4.9)
[2018-06-28 06:36] LABS: CREATININE SERUM 6.4 mg/dL (0.7-1.3)
[2018-06-28 06:42] LABS: BASOPHIL % 0.1 % (0-2); PLATELET COUNT 287 x10^3mcL (130-400); RED CELL DISTRIBUTION WIDTH 13.8 % (11.5-14.5)
--- NOTE | 2018-06-28 08:00 | NUR ---
AWAKE,ALERT AND ORIENTED,DENIES ANY PAIN AT THIS TIME.REQUIRES MOD. ASSIST. W/ ADL NEEDS.HEMODIALYSIS PT. ,ANURIC ,ON FLUIDS RESTRICTION 1300 /DAY.DENIES ANY PAIN AT THIS TIME.ENCOURAGE OOB TO CHAIR AT BEDSIDE.WILL CONT. PLAN OF CARE.
[2018-06-28 10:20] VITALS: BP 152/84
[2018-06-28 14:42] VITALS: BP 133/62
--- NOTE | 2018-06-28 15:00 | NUR ---
DENIES PAIN THE WHOLE DAY. NO ACUTE DISTRESS NOTED. RT LEG DRESSING CHANGE AND TX DONE.OOB TO CHAIR AT BEDSIDE SHIVANI WELL.
[2018-06-28 16:28] VITALS: BP 128/68
--- NOTE | 2018-06-28 19:25 | NUR ---
RECEIVED PT FROM DAY SHIFT RN. SMITH. TELE #8 SHOWING NSR. DENIES CHEST PAIN/PALPITATIONS. DENIES HEADACHE/DIZZINESS. BREATHING E/U, NO SOB, LUNG SOUNDS CTAB. ABD SOFT/ROUND, BOWEL SOUNDS ACTIVE X4 QUADS, DENIES N/V. PULSES PALPABLE, +1 PITTING EDEMA BLE. RIJ DRESSING CDI, USEDFOR HD. L WRIST IV SITE CDI, SALINE-LOCKED. CALL LIGHT WITHIN REACH. WILL CONTINUE TO MONITOR.
--- NOTE | 2018-06-28 20:15 | NUR ---
PT ASSISTED TO BATHROOM, GAIT SLOW AND UNSTEADY. PT HAD LARGE FORMED BM. PT BACK IN BED.
[2018-06-28 20:24] VITALS: BP 143/85
--- NOTE | 2018-06-29 01:10 | NUR ---
PT RESTING IN BED WITH EYES CLOSED. NO S/S ACUTE DISTRESS. BREATHING E/U. NO SIGNS OF PAIN NOTED. WILL CONTINUE TO MONITOR.
[2018-06-29 05:33] VITALS: BP 151/78
--- NOTE | 2018-06-29 06:03 | NUR ---
PT HAD RESTFUL NIGHT. DENIES PAIN. NO S/S ACUTE DISTRESS. ALL NEEDS MET AND ATTENDED TO. NO CHANGES OVERNIGHT. CALL LIGHT WITHIN REACH. WILL ENDORSE CARE TO ONCOMING SHIFT NURSE.
[2018-06-29 06:10] LABS: CALCIUM 8.5 mg/dL (8.5-10.1); CARBON DIOXIDE 28.6 mmol/L (21-32); PHOSPHOROUS 4.6 mg/dL (2.5-4.9)
[2018-06-29 06:12] LABS: CREATININE SERUM 7.4 mg/dL (0.7-1.3)
[2018-06-29 06:35] LABS: BASOPHIL % 0.2 % (0-2); PLATELET COUNT 326 x10^3mcL (130-400)
[2018-06-29 08:03] VITALS: BP 158/75
--- NOTE | 2018-06-29 08:19 | NUR ---
AWAKE,ALERT AND ORIENTED,DENIES ANY PAIN AT THIS TIME SITTING UP AT EGDE OF BED FOR BREAKFAST,STATED HE FEELS MUCH BETTER THIS MORNING.INSTRUCTED STRICT I& O NOT TO DRINK TOO MUCH WATER PT. MADE AWARE.ABLE TO VOID IN URINAL SMALL AMT.HEMODIALYSIS 3 X PER WEEK,M-W-,CALL LIGHT W/ IN REACH. WILL CONT. PLAN OF CARE.
[2018-06-29 12:17] VITALS: BP 162/73
--- NOTE | 2018-06-29 14:49 | NUR ---
Follow-up Nutrition Assessment- Dx:hypoglycemia, accelerated HTN Labs: (06/29/18) Na 139, K 4.0, Glu 119 H, BUN 59 H, Cr 7.4 H, Ca 8.5, Phos 4.6, H/H 7.12/23 Meds: catapres, Colace, coreg, D5%/water, ferrous sulfate, humulin R, hydralazine, Lasix, levaquin, Lipitor, Norvasc, phoslo, theragran, Tylenol, zofran Diet: [facility] PO Intakes: (06/29) B: 100%, L: 100%, (06/28) B: 100%, L: 50%, D: 100%, (06/27) B: 100%, (06/26) 60-80%, (06/25) 60%, (06/24) 100% x 3 meals, (06/23) 90-100% x 3 meals. Weights: (06/23) 271 pounds (123.4 kg) Skin: abrasion/redness to BLE Edema: +1 and +2 nonpitting edema to BLE Last BM: 06/24/18 x 1 Estimated Nutritional Needs unchanged from prior assessment: Need increased d/t Pt on HD, based IBW (70 kg) d/t presence of edema. Energy: 5515-8995 kcal/d (30-35 kcal/kg - wt maintenance) Protein: 69-105 gm/d (1.2-1.5 gm/kg - wt maintenance, preservation of lean body mass) Fluid: per doctor due to Pt on HD Per Physician Progress Note (06/29), tunneled catheter placed on 06/26, Pt had 3rd round of HD yesterday (06/28), Pt is pending outpatient dialysis chairtime. No acute events overnight. Sepsis resolved. Pt maintain good PO intakes. Denies N/V/D/C. RDN spoke RN, RN reports Pt did not have HD today, HD is scheduled for tomorrow as his schedule is MWF. No GI issues. Nutrition Diagnosis 1. Morbid obesity related to sedentary lifestyle and poor food choices as evidenced by Pt reports of not participating in physical activities on a regular basis and consumption of high calorie, highly processed snack items on a regular basis. (Ongoing) 2. Altered GI function related to pathophysiological causes as evidenced by no BM x 5 days (last BM noted to be on 06/24). (Modified) 3. Impaired nutrient utilization related to renal dysfunction as evidenced by elevated renal labs: BUN 59 H, Cr 7.4 H on 06/29/18; Pt on HD. (New) Intervention/RDN Recommendation(s): 1. Continue CCHO diet as tolerated. 2. Consider adding renal diet restriction to current diet order. Monitor/Evaluate Goal: Intake via PO intakes to meet at least 75% of estimated needs with acceptable tolerance within 7 days. Monitor: PO intakes and/or nutrition support tolerance, Labs, GI function, Skin integrity, Weights. F/U in 7 days as low risk (07/06)
--- NOTE | 2018-06-29 14:49 | NUR ---
Intervention/RDN Recommendation(s): 1. Continue CCHO diet as tolerated. 2. Consider adding renal diet restriction to current diet order.
--- NOTE | 2018-06-29 15:00 | NUR ---
RT. LOWER LEG WOUND ULCER TREATMENT AND DRESSING CHANGED.
[2018-06-29 16:01] VITALS: BP 118/52
--- NOTE | 2018-06-29 19:00 | NUR ---
DENIES PAIN THE WHOLE DAY.
--- NOTE | 2018-06-29 19:30 | NUR ---
AOX4. TELE #8, SR. LUNGS DIMINISHED ON RA. PULSES PALPABLE. EDEMA TO BLE. BOWEL SOUNDS ACTIVE. VOIDS FREELY. LISA CATH TO RIGHT NECK, NO REDNESS OR SWELLING. RECIEVES HD M/W/F. DRESSING TO RLE, CDI. REDNESS AND DRY SCABS TO LLE, HUSSAIN. DENIES PAIN. SL TO LW, PATENT. BED IN LOWEST POSITION, 2 SIDE RAILS UP, CALL LIGHT IN REACH. INSTRUCTED TO CALL FOR ASSISTANCE.
[2018-06-29 21:52] VITALS: BP 139/65
--- NOTE | 2018-06-30 00:40 | NUR ---
RESTING IN BED WITH EYES CLOSED. BREATHING EVEN AND UNLABORED. NO ACUTE DISTRESS NOTED. WILL CONTINUE TO MONITOR.
[2018-06-30 05:47] VITALS: BP 152/86
--- NOTE | 2018-06-30 05:59 | NUR ---
NO ACUTE DISTRESS NOTED. NO ACUTE CHANGES. BP STABLE OVERNIGHT. WILL ENDORSE TO ONCOMING RN.
[2018-06-30 06:29] LABS: BASOPHIL % 0.2 % (0-2); PLATELET COUNT 347 x10^3mcL (130-400); RED CELL DISTRIBUTION WIDTH 12.7 % (11.5-14.5)
[2018-06-30 06:42] LABS: CALCIUM 8.8 mg/dL (8.5-10.1); CARBON DIOXIDE 27.8 mmol/L (21-32)
[2018-06-30 06:57] LABS: CREATININE SERUM 8.2 mg/dL (0.7-1.3)
--- NOTE | 2018-06-30 07:50 | NUR ---
RECEIVED PT IN BED A/A/OX4 DENIES MALLORY. RESP EVEN AND UNLABORED WITH SLIGHTLY DIMINISHED BS TO BILAT BASES. DENIES ANY SOB/CP/PRESSURE AT THIS TIME. NOTED WITH EDEMA TO BLE. IV SL TO LH. ABD SOFT, OBESE, NONTENDER WITH ACTIVE BS X4. DENIES ANY N/V AT THIS TIME. VOIDING FREELY. NEW ONSET ESRD WITH HD MWF, DUE TODAY AWAITING ORDERS. RCW LISA CATH IN PLACE. WOUND TO RLE WITH DRSG IN PLACE CDI. LLE WITH DRY SKIN HUSSAIN. CALL LIGHT IN REACH NEEDS ATTENDED TO.
[2018-06-30 09:10] VITALS: BP 139/70
[2018-06-30 12:15] VITALS: BP 143/76
--- NOTE | 2018-06-30 14:15 | NUR ---
HD NURSE AT BEDSIDE, REPORT GIVEN TO START TX.
--- NOTE | 2018-06-30 14:41 | NUR ---
RECEIVED PT IN BED A/A/OX4 DENIES MALLORY. RESP EVEN AND UNLABORED WITH SLIGHTLY DIMINISHE DBS TO BILAT BASES. DENIES ANY SOB/CP/PRESSURE AT THIS TIME. NOTED WITH +1 EDEMA TO BLE. IV SL TO LW. ABD SOFT, OBESE, NONTENDER WITH ACTIVE BS X4. DENIES ANY N/V AT THIS TIME. VOIDING FREELY. WITH NEW ONSET ESRD WITH HD MWF VIA LISA CATH TO RCW. DUE FOR TX TODAY NO ORDER AT THIS TIME. PT WITH WOUNDS TO RLE WITH DRSG IN PLACE. DRY WOUNDS TO LLE HUSSAIN. PT DENIES ANY PAIN OR DISCOMFRT WITH GEN WEAKNESS UP WITH PHYSICAL THERAPY. CALL LIGHT IN REACH NEEDS ATTENDED TO.
--- NOTE | 2018-06-30 15:45 | NUR ---
UNABLE TO SEE PATIENT FOR P.T. DUE TO DIALYSIS APPOINTMENT, WILL ATTEMPT AGAIN TOMORROW.
--- NOTE | 2018-06-30 16:00 | NUR ---
PT WITH ONGOING HD TX. DENIES ANY DISCOMFORT. CALL LIGHT IN REACH NEEDS ATTENDED TO.
--- NOTE | 2018-06-30 17:40 | NUR ---
CATH FLOW ACTIVASE GIVEN TO HD NURSE TO GIVE VIA HD PORTS SINCE SHE HAD TROUBLE WITH RESISTANCE DURING HD TX. HD NURSE OBTAINED T.O. FROM Chuy WADDELL AND WRITTEN ORDER WS TRANSCRIBED. HD COMPLEDTED WITH TOTAL OUTPUT OF 1.6L. CALL LIGHT IN REACH NEEDS ATTENDED TO.
--- NOTE | 2018-06-30 18:20 | NUR ---
RECEIVED T.O. ORDER FROM DR. ARAUZ TO START LYRICA 25MG PO TID, D/C LIPITOR AND GIVE ONE DOSE OF TORADOL 15MG IVP X2 FOR PT'D C/O BODY ACHES AND PAIN TO BLE.
[2018-06-30 19:06] VITALS: BP 129/66
--- NOTE | 2018-06-30 19:20 | NUR ---
RECEIVED PT LYING IN BED, AAOX4. DENIES HEADACHE/DIZZINESS. ABLE TO FOLLOW COMMANDS. NO SOB NOTED, LUNG SOUNDS CTA. DENIES CHEST PAIN/PRESSURE, ON TELE#8, SR ON THE MONITOR. WEAK PEDAL PULSES. DENIES ABDOMINAL DISCOMFORT. BOWEL SOUNDS ACTIVE. PT STATED THAT HE STILL URINATES, URINAL AT BEDSIDE. ON HEMODIALYSIS, W/ LISA SPLIT ON THE RIGHT UPPER CHEST, CDI. W/ SWELLING ON BLE. NOTED MILD REDNESS ON LLE AND SOME SCABS, BUSINESS ASSOCIATE. W/ RLE DRESSING, CDI. IV SITE ON THE LFA IS PATENT AND INTACT. SIDE RAILS UPX2. CALL LIGHT ON REACH. BED ALARM ON. WILL CONT TO MONITOR
[2018-06-30 20:37] VITALS: BP 111/58
--- NOTE | 2018-07-01 01:11 | NUR ---
PT HAS HIS EYES CLOSED, EASILY AROUSABLE W/ VERBAL STIMULI. NO S/S OF PAIN AND SOB NOTED. CALL LIGHT ON REACH. WILL CONT TO MONITOR
--- NOTE | 2018-07-01 02:00 | NUR ---
PT SITTING ON THE EDGE OF THE BED, VOIDED 50 ML OF YELLOW URINE BY URINAL. WILL CONT TO MONITOR
[2018-07-01 04:40] VITALS: BP 148/77
--- NOTE | 2018-07-01 05:10 | NUR ---
RECEIVED REPORT FRON NIGHT NURSE ASSUMING PT CARE RESPONSABILITY.
--- NOTE | 2018-07-01 05:16 | NUR ---
REPORT GIVEN TO [facility] FOR CONTINUITY OF CARE
--- NOTE | 2018-07-01 06:20 | NUR ---
RECEIVED PT IN BED A/A/OX4 DENIES MALLORY. RESP EVEN AND UNLABORED WITH CLEAR BS BILAT. DENIES ANY SOB/CP/PRESSURE AT THIS TIME. NOTED WITH +1 EDEMA TO BLE. IV SL TO LFA. ABD SOFT, OBESE, NONTENDER WITH ACTIVE BS X4. DENIES ANY N/V AT THIS TIME. VOIDING FREELY. WITH NEW ONSET HD MWF, LAST TX LAST NIGHT WITH 1.6L OUTPUT. RCW LISA CATH IN PLACE DRSG CDI. WOUND TO RLW WITH DRSG IN PLACE, CDI. LLE WITH REDNESS AND DRY SKIN. CALL LIGHT IN REACH NEEDS ATTENDED TO.
[2018-07-01 06:35] LABS: BASOPHIL % 0.2 % (0-2); PLATELET COUNT 395 x10^3mcL (130-400); RED CELL DISTRIBUTION WIDTH 12.6 % (11.5-14.5)
[2018-07-01 06:52] LABS: CARBON DIOXIDE 24.9 mmol/L (21-32); MAGNESIUM 1.9 mg/dL (1.8-2.4); POTASSIUM SERUM 4.3 mmol/L (3.5-5.1)
[2018-07-01 06:54] LABS: CREATININE SERUM 7.7 mg/dL (0.7-1.3)
[2018-07-01 09:00] VITALS: BP 124/67
--- NOTE | 2018-07-01 12:30 | NUR ---
PT RESTING AT THIS TIME. DENIES ANY DISCOMFORT AT THIS TIME. CALL LIGHT IN REACH NEEDS ATTENDED TO.
[2018-07-01 14:06] VITALS: BP 121/84
--- NOTE | 2018-07-01 14:42 | NUR ---
PHYSICAL THERAPY DAILY NOTES CO-SIGN All documentation done by the Machine Tool Operator for 07/01/18 has been reviewed. I agree with the documentation. Reviewed/Co-Signed by: Suzi Dozier PT Documentation Done by:GRANT FATIMA
--- NOTE | 2018-07-01 15:30 | NUR ---
PT RESTING AT THIS TIME. DENIES ANY DISCOMFORT AT THIS TIME. CALL LIGHT IN REACH NEEDS ATTENDED TO.
--- NOTE | 2018-07-01 17:00 | NUR ---
HD NURSE ZAMORA AWARE OF ORDER FOR HD TOMORROW. WILL SCHEDULE TX NURSE.
--- NOTE | 2018-07-01 18:40 | NUR ---
PERFORMED WOUND CARE ORDERED TO RLE. PT TOLERATED WELL.
--- NOTE | 2018-07-01 20:18 | NUR ---
ALERT WITH PERIODS OF FORGETFULNESS. 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 RESPIRATION EVEN AND UNLABORED. DENIES ANY PAIN/DISCOMFORT. LISA SPLIT TO RIGHT CHEST FOR HEMODIALYSIS ACCESS. LLE WITH SCABS/REDNESS, OPEN TO AIR. BLE WIT 1+ EDEMA , KEPTY ELEVATED WITH PILLOWS. CALL LIGHT WITHINREACH, INSTRUCTED TO CALL FOR ANY ASSSITANCE NEEDED AND VERBALIZED UNDERSTANDING.
[2018-07-01 21:25] VITALS: BP 102/66
--- NOTE | 2018-07-01 22:00 | NUR ---
DENEIS ANY PAIN/DISCOMFORT. WILL CONTINUE TO MONITOR. ORDERED.
--- NOTE | 2018-07-02 05:16 | NUR ---
REPOSITIONED SELF IN BED. KEPT ALL NNEDS ATTENDED. CLEAN ND DRY.
[2018-07-02 05:47] VITALS: BP 143/71
[2018-07-02 06:24] LABS: BASOPHIL % 0.3 % (0-2); PLATELET COUNT 347 x10^3mcL (130-400); RED CELL DISTRIBUTION WIDTH 13.6 % (11.5-14.5)
[2018-07-02 06:42] LABS: CALCIUM 8.5 mg/dL (8.5-10.1); CARBON DIOXIDE 26.1 mmol/L (21-32); MAGNESIUM 1.9 mg/dL (1.8-2.4); PHOSPHOROUS 5.6 mg/dL (2.5-4.9); POTASSIUM SERUM 4.4 mmol/L (3.5-5.1)
[2018-07-02 06:43] LABS: CREATININE SERUM 8.6 mg/dL (0.7-1.3)
--- NOTE | 2018-07-02 07:30 | NUR ---
RECEIVED PATIENT IN BED, AWAKE, ALERT AND ORIENTED. DENIES ANY PAIN OR DISCOMFORT. RESP EVEN AND UNLABORED, LUNGS CLEAR ON ROOM AIR. DENIES ANY COUGH OR SOB. HL LEFT F/A PATENT, FLUSHED WELL, NO REDNESS NOTED. 1+ EDEMA NOTED BLE, AND DRESSING NOTED C/D/I ON RT LOWER EXTREM. DRY SCABS NOTED LLE AND RUE HUSSAIN. GENERALIZED WEAKNESS NOTED. ABD SOFT AND ROUND, BOWEL SOUNDS ACTIVE, LBM 06/30/18 PER PATIENT. NO ACUTE DISTRESS NOTED. PATIENT INSTRUCTED TO USE CALL LIGHT FOR ASSIST.
--- NOTE | 2018-07-02 07:56 | NUR ---
PATIENT'S PLAN OF CARE WAS DISCUSSED AND REVIEWED WITH CIVIL ENGINEER: LANDRY STRICKLAND
[2018-07-02 07:59] VITALS: BP 152/79
--- NOTE | 2018-07-02 08:30 | NUR ---
PATIENT OOB WITH P.T. AND AMUBLATED IN HALLWAY WITH ASSIST OF A WALKER. TOLERATED WELL AND IS BACK IN BED.
[2018-07-02 11:49] VITALS: BP 156/88
--- NOTE | 2018-07-02 14:54 | NUR ---
PHYSICAL THERAPY DAILY NOTES CO-SIGN All documentation done by the Substitute Bus Driver for 07/02/18 has been reviewed. I agree with the documentation. Reviewed/Co-Signed by: Suzi Dozier PT Documentation Done by:GRANT FATIMA
[2018-07-02 16:02] VITALS: BP 121/68
[2018-07-02 16:04] VITALS: BP 134/70
--- NOTE | 2018-07-02 17:21 | NUR ---
PATIENT HAS BEEN IN BED THIS AFTERNOON. USES URINAL AT BEDSIDE. PER PATIENT HE HAD A BM TODAY. HL PATENT. PATIENT IS WAITING TO HAVE HD DONE THIS EVENING. DENIES ANY PAIN OR DISCOMFORT. CONDITION APPEARS STABLE. WILL CONTINUE TO MONITOR.
--- NOTE | 2018-07-02 18:17 | NUR ---
I HAVE REVIEWED THE DATA COLLECTION BY KEKE (NAME): LANDRY STRICKLAND ENTERED ON (DATE/TIME):07/02/18 [id number] I CONCUR WITH THE DATA AND ANY EXCEPTIONS OR COMMENTS ARE LISTED BELOW:
--- NOTE | 2018-07-02 19:37 | NUR ---
AWAKE, ALERT, ORIENTED TO NAME,PLACE, TIME AND SITUATION. SPEECH CLEAR AND APPROPRIATE. HOB ELEVATED 20 DEG. HEMODIALYSIS ONGOING. NOTED DIALYSIS ACCESS CATHETER TO RIGHT SIDE OF CHEST. BREATHING EVEN AND UNLABORED ON ROOM AIR.
--- NOTE | 2018-07-02 21:31 | NUR ---
DIALYSIS STILL ONGOING. PT'S EYES CLOSED, BREATHING EVEN AND UNLABORED.
--- NOTE | 2018-07-02 22:59 | NUR ---
DIALYSIS COMPLETED, DIALYSIS NURSE REPORTED 1500 ML OUT.
[2018-07-02 23:00] VITALS: BP 136/67
--- NOTE | 2018-07-03 01:02 | NUR ---
eyes closed, breathing even and unlabored, call light within easy reach. pt repositioned self in bed.
[2018-07-03 05:21] VITALS: BP 156/74
--- NOTE | 2018-07-03 05:52 | NUR ---
AWAKE AND ALERT, WATCHING TV. BREATHING EVEN AND UNLABORED ON ROOM AIR. IV SITE TO LEFT AC FROM REDNESS OR INFILTRATION. CALL LIGHT WITHIN EASY REACH.
[2018-07-03 06:06] LABS: BASOPHIL % 0.3 % (0-2); RED CELL DISTRIBUTION WIDTH 13.5 % (11.5-14.5)
[2018-07-03 06:37] LABS: CALCIUM 8.1 mg/dL (8.5-10.1); CARBON DIOXIDE 29.4 mmol/L (21-32); MAGNESIUM 1.9 mg/dL (1.8-2.4); PHOSPHOROUS 4.6 mg/dL (2.5-4.9)
[2018-07-03 06:54] LABS: CREATININE SERUM 6.6 mg/dL (0.7-1.3)
[2018-07-03 07:11] LABS: PLATELET COUNT 401 x10^3mcL (130-400)
--- NOTE | 2018-07-03 07:11 | NUR ---
PATIENT RESTING IN BED PEACEFULLY, AWAKE, ALERT AND ORIENTED. PATIENT DENIES CHEST PAINA DN SOB. 1+ EDEMA NOTED TO BLE, ELEVATED. ON ROOM AIR, BREATHING EVEN AND UNLABORED. LISA SPLINT NOTED TO RIGHT CHEST WALL, FREE OF REDNESS AND EDEMA. LAST HD 1-30:1.5L TAKEN OUT. PATIENT TOLERATED WELL PER COMPENSATION ADJUSTER NURSE. WOUND WITH DRESSING NOTED TO RIGHT LOWER LEG, DRESSING CDI TO BE CHANGED TODAY. IV NOTED TO LFA, SALINE LOCKED, FLUSHING WELL. NO S/S REDNESS OR EDEMA AT SITE. CALL LIGHT WITHIN EASY REACH. WILL CONTINUE PLAN OF CARE.
--- NOTE | 2018-07-03 07:13 | NUR ---
awake and alert, in no acute distress. endorsed to nurse bashir
[2018-07-03 09:38] VITALS: BP 138/75
--- NOTE | 2018-07-03 14:11 | NUR ---
PATIENT RESTING IN BED PEACEFULLY. NO C/O PAIN OR DISCOMFORT. PATIENT STATES ALL NEEDS ATTENDED TO AT THIS TIME. WILL CONTINUE TO MONITOR.
--- NOTE | 2018-07-03 15:48 | NUR ---
PHYSICAL THERAPY DAILY NOTES CO-SIGN All documentation done by the Assistant Banquet Manager for 07/03/18 has been reviewed. I agree with the documentation. Reviewed/Co-Signed by: Suzi Dozier PT Documentation Done by:GRANT FATIMA
--- NOTE | 2018-07-03 15:53 | NUR ---
PATIENTS DRESSING CHANGED TO RLE PER WOUND CARE ORDERS. WOUND BED HEALING WELL AND PINK IN COLOR. NO DRAINAGE NOTED. PATIENT TOLERATED WELL.
[2018-07-03 15:54] VITALS: BP 122/69
--- NOTE | 2018-07-03 18:44 | NUR ---
PATIENT RESTING IN BED PEACEFULLY WITH BOTH EYES CLOSED, AROUSABLE. PATIENT DENIES PAIN/DISCOMFORT. BREATHING EVEN AND UNLABORED ON ROOM AIR. CALL LIGHT WITHIN EASY REACH. FALL PRECAUTIONS IN PLACE. WILL ENDORSE PATIENT CARE TO MANUFACTURING QUALITY MANAGER NURSE.
--- NOTE | 2018-07-03 19:12 | NUR ---
was in restroom, ambulated back to bed. awake and alert, oriented to name, place, time and situation. speech clear and appropriate. hob elevated 30 deg. call light within easy reach. saline lock to left forearm. stated just passed stool. still voids.
[2018-07-03 20:37] VITALS: BP 115/64
--- NOTE | 2018-07-03 23:04 | NUR ---
awake and alert, watching tv. call light within easy reach. breathing unlabored.
[2018-07-04 05:31] VITALS: BP 156/92
--- NOTE | 2018-07-04 05:43 | NUR ---
AWAKE AND ALERT, STATED SLEPT WELL. BREATHING EVEN AND UNLABORED ON ROOM AIR. WATCHING TV AT THIS TIME. IV SITE FREE FROM REDNESS OR SWELLING. CALL LIGHT WITHIN EASY REACH
[2018-07-04 06:23] LABS: CALCIUM 8.2 mg/dL (8.5-10.1); CARBON DIOXIDE 28.2 mmol/L (21-32); MAGNESIUM 2.1 mg/dL (1.8-2.4); PHOSPHOROUS 5.3 mg/dL (2.5-4.9); POTASSIUM SERUM 4.2 mmol/L (3.5-5.1)
[2018-07-04 06:30] LABS: CREATININE SERUM 7.7 mg/dL (0.7-1.3)
--- NOTE | 2018-07-04 07:07 | NUR ---
awake and alert, breathing even and unlabored. denies having pain. endorsed to nurse viviana
--- NOTE | 2018-07-04 07:15 | NUR ---
AAO X4.DENIES ANY PAIN/DISCOMFORT.LUNGS CLEAR.PT NON-TELE.IV SALINE LOCKED.R CHEST WITH LISA PLIT FOR DIALYSIS.PT WILL HAVE DIALYSIS TODAY.R LEG WITH WOUND WITH DRESSING CDI. PT FOR DIALYSIS TODAY.CALL LIGHT WITHIN REACH.INSTRUCTED TO CALL FOR ANY PAIN/DISCOMFORT.WILL CONTINUE TO MONITOR PT.
[2018-07-04 07:44] LABS: BASOPHIL % 0.3 % (0-2); PLATELET COUNT 401 x10^3mcL (130-400); RED CELL DISTRIBUTION WIDTH 13.4 % (11.5-14.5)
[2018-07-04 09:10] VITALS: BP 147/76
--- NOTE | 2018-07-04 09:49 | NUR ---
UNABLE TO SEE PATIENT FOR P.T. DUE TO DIALYSIS TREATMENT, WILL ATTEMPT AGAIN NEXT SESSION.
[2018-07-04 12:14] VITALS: BP 139/78
--- NOTE | 2018-07-04 12:14 | NUR ---
DIALYSIS DONE WITH 2.3L OUT.PT TOLERATED IT WELL.V/S STABLE: BW=980/78,HR=80,T=98.8,RR=20,SPO2=96% ON RA.
--- NOTE | 2018-07-04 15:20 | NUR ---
PHYSICAL THERAPY DAILY NOTES CO-SIGN All documentation done by the Enterprise Resource Analyst for 07/04/18 has been reviewed. I agree with the documentation. Reviewed/Co-Signed by: Suzi Dozier PT Documentation Done by:GRANT FATIMA
[2018-07-04 17:38] VITALS: BP 119/63
--- NOTE | 2018-07-04 18:26 | NUR ---
NO SIGNIFICANT CHANGENOTED.WILL ENDORSE TO NEXT SHIFT.
--- NOTE | 2018-07-04 19:44 | NUR ---
SHIFT REASSESSMENT DONE.PATIENT ALERT AND OREINTED.R EYE BLIND,NEEDS ANTICIPATED.BREATHING EASY.UP WITH PT ORDER.GEN WEAKNESS,FALL PRECAUTION.HEPLOCK INTACT.MED SURG PATIENT.SCABS BLE AND BUE.R LEG WOUND CARE T TH SAT.BLE EDMA NOTED.HD PATIENT HAD ONE TODAY 2.3 LITERS OUT.LISA SPLIT R CHEST.NO PAIN SO FAR.CALL LIGHT IN REACH.
--- NOTE | 2018-07-04 20:30 | NUR ---
PATIENT STATED HE DID NOT RECEIVED DINNER TRAY,JUST A SANDWICH FROM HER MAIN NURSE,JUNIOR.WILL VERIFY.
[2018-07-04 20:39] VITALS: BP 146/86
--- NOTE | 2018-07-04 20:49 | NUR ---
PATIENT PM MEDS GIVEN,SWALLOWS WELL.BLOOD SUGAR THIS PM 184,GIVEN 2 UNITS RI.
--- NOTE | 2018-07-04 21:56 | NUR ---
PATIENT CHECKED AT INTERVALS,NO RESP DISTRESS.
--- NOTE | 2018-07-05 04:56 | NUR ---
AMBULATORY TO RESTROOM.JUST WASH UP FACE.
[2018-07-05 05:41] VITALS: BP 164/94
--- NOTE | 2018-07-05 06:01 | NUR ---
I AND O MEASURED.WILL RECHECKED BP,GIVEN CATAPRES EARLIER BP WAS 164/
[2018-07-05 06:30] VITALS: BP 92/55
--- NOTE | 2018-07-05 06:30 | NUR ---
PATIENT BP 92/55.PATIENT DECLINE AM LAB WORKS NOW,SAYS HE IS GOING HOME.
--- NOTE | 2018-07-05 07:15 | NUR ---
PT REFUSED TO HAVE AM LAB WORKS DRAWN
--- NOTE | 2018-07-05 09:13 | NUR ---
PT ON BED, AWAKE, ALERT, AND ORIENTED. HAS NO COMPLAINT OF PAIN, SOB, OR DIZZINESS. RESPONDS WELL TO QUESTION AND ANSWER. CLEAR JUSTIN LUNG FIELD, SYMMETRICAL CHEST EXPANSION AND UNLABORED. ACTIVE BOWEL SOUNDS NOTED, NON DISTENDED ABDOMEN. TRACE EDEMA NOTED ON THE BLE. ELEVATED WITH PILLOW SUPPORT. DRESSING IS CDI ON THE R LEG. LISA SPLIT CATH ACCESS ON THE R CHEST NOTED. SIDE RAILS UP, CALL LIGHT WITHIN REACH, WILL CONTINUE TO MONITOR
[2018-07-05 09:31] VITALS: BP 102/61
[2018-07-05] MEDS ORDERED: FER300 PO (10:51)
[2018-07-05] MEDS ORDERED: PHOS PO (10:52)
[2018-07-05] MEDS ORDERED: LYRICA25 M1 PO (10:52)
[2018-07-05] MEDS ORDERED: Z5 PO (10:53)
[2018-07-05] MEDS ORDERED: THERA TABLET400 MCG PO (10:54)
[2018-07-05 11:57] VITALS: BP 102/61
[2018-07-05] MEDS ORDERED: NOR10 PO (14:30)
--- NOTE | 2018-07-05 14:46 | NUR ---
D/C INSTRUCTION DONE. IV HAS BEEN D/C. INSTRUCTION TAUGHT WITH PATIENT AND FRIEND AT BEDSIDE. WITH THE PATIENTS CONSENT
== END 2018-07-05 14:49 | disposition home or self-care (01) | DRG 720 ==
LOC: ED 16:11 → MU 19:32 → DU 19:32 → MU 07-01 17:09
PROVIDERS: Emergency Medicine; Family Medicine; Internal Medicine; Podiatrist Foot & Ankle Surgery; Surgery; ADMIT General Practice
PROC: B543ZZA Ultrasonography of Right Jugular Veins, Guidance (ICD-10-PCS; 2018-06-26)
PROC: 05HM33Z Insertion of Infusion Device into Right Internal Jugular Vein, Percutaneous Approach (ICD-10-PCS; principal; 2018-06-26 07:30)
PROC: 30233N1 Transfusion of Nonautologous Red Blood Cells into Peripheral Vein, Percutaneous Approach (ICD-10-PCS; 2018-06-27)
DX: A41.9 Sepsis, unspecified organism (principal); I21.A1 Myocardial infarction type 2; J96.01 Acute respiratory failure with hypoxia; N17.0 Acute kidney failure with tubular necrosis; I13.2 Hypertensive heart and chronic kidney disease with heart failure and with stage 5 chronic kidney disease, or end stage renal disease; I67.4 Hypertensive encephalopathy; E44.0 Moderate protein-calorie malnutrition; N18.6 End stage renal disease; D68.69 Other thrombophilia; I50.43 Acute on chronic combined systolic (congestive) and diastolic (congestive) heart failure; E11.22 Type 2 diabetes mellitus with diabetic chronic kidney disease; E11.649 Type 2 diabetes mellitus with hypoglycemia without coma; L03.116 Cellulitis of left lower limb; L03.115 Cellulitis of right lower limb; M62.82 Rhabdomyolysis; R80.9 Proteinuria, unspecified; E78.5 Hyperlipidemia, unspecified; Z99.2 Dependence on renal dialysis; Z79.4 Long term (current) use of insulin; Z68.29 Body mass index [BMI] 29.0-29.9, adult; Z91.19 Patient's noncompliance with other medical treatment and regimen
CPT/HCPCS: 82962; 83880; 84439; 86580; 97110-GP; 97116-GP; 97530-GP; A4301; J0360; J0690; J0885-EC; J1170; J1610; J1644; J1815; J1885; J1940; J1956; J2001; J2250; J2405; J2997; J3010; J3490; J7030; J7050; P9016; Q0092; Q0163; Q9967